=== PATIENT | female | born 1965 | race African-American/Black ===

== ENCOUNTER 2018-08-02 06:50 | Emergency (ER) | payer OTHER ==
[2018-08-02 07:12] VITALS: BMI 25.3
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
[2018-08-02 08:19] LABS: BASO % 0.8 % (0-2.0); EOS % 2.9 % (0-4.5); HEMATOCRIT 37.7 % (32.4-45.2); HEMOGLOBIN 12.1 GM/dL (10.7-15.3); MCH 29.2 pg (25.7-33.7); MCHC 32.1 g/dl (32.0-36.0); MEAN CELL VOLUME 90.9 fl (80-96); MONO % 7.8 % (3.8-10.2); NEUT % 56.5 % (42.8-82.8); PLATELET COUNT 235 K/MM3 (134-434); RBC 4.15 M/mm3 (3.60-5.2); RDW 12.8 % (11.6-15.6); WHITE BLOOD COUNT 6.8 K/mm3 (4.0-10.0)
[2018-08-02 08:25] LABS: ALBUMIN 3.8 g/dl (3.4-5.0); ANION GAP 8 MMOL/L (8-16); BILIRUBIN,TOTAL 0.3 mg/dL (0.2-1); BLOOD UREA NITROGEN 11 mg/dL (7-18); CHLORIDE 104 mmol/L (98-107); CO2 29 mmol/L (21-32); CREATININE 0.9 mg/dL (0.55-1.3); GLUCOSE,RANDOM 96 mg/dL (74-106); LIPASE 78 U/L (73-393); POTASSIUM 5.4 mmol/L (3.5-5.1); SGOT/AST 19 U/L (15-37); SGPT/ALT 22 U/L (13-61); SODIUM 141 mmol/L (136-145); TOT PROT 8.1 g/dl (6.4-8.2)
[2018-08-02 08:28] LABS: ALK PHOS 72 U/L (45-117)
--- NOTE | 2018-08-02 09:06 | PDOC ---
Attending Attestation - Resident Resident Name: Al Ybarra - ED Attending Attestation I have performed the following: I have examined & evaluated the patient, The case was reviewed & discussed with the resident, I agree w/resident's findings & plan - HPI HPI: 08/02/18 13:59 The patient is a 52-year-old female, with a past medical history of asthma and hypothyroidism, who presents to the ED for 3 weeks of left breast pain. She describes the pain as intermittent, sharp in sensation, radiating to the back, exacerbated with deep inspiration and movement. Patient reports taking Aleve with no relief of her symptoms. Patient is also complaining of left-sided numbness that has been ongoing for several weeks and subjective fevers, cough, and congestion that began 1 week ago. The patient denies any recent trauma to the area. She denies any shortness of breath or palpitations. She denies any nausea, vomiting, diarrhea, or abdominal. She denies any urinary symptoms. Allergies: Penicillins Surgical History: None reported. Social History: None reported. PCP: Dr. Beth King - Physicial Exam PE: 08/02/18 13:59 NAD, well appearing, MMM, nl conjunctiva, anicteric; neck supple. lungs clear, no respiratory distress., +left lateral chest wall TTP, under the breast. RRR, abdomen soft nontender. DORAN x4, no focal neuro deficits. No peripheral edema. no calf tenderness or swelling. normal color for ethnicity, [facility]. 08/02/18 14:00 - Medical Decision Making 08/02/18 11:52 Hooper 52 YOF h/o asthma, hypothyroidism presenting with left breast pain x 3 weeks, radiating to back. Worse with deep breathing and movement. Sharp, otc meds w/o relief. Left body numbness x several weeks, subjective fevers. +cough and congestion x 1 week Vitals wnl, normal sats, no respiratory distress. Cannot PERC out. D dimer to r/o PE, which is negative, so doubt Dissection or PE. Trop neg. Low suspicion for ACS angina or myocarditis. CXR clear, no infection or effusion EKG normal sinus rhythm, no interval abnormalities, narrow QRS, ST and T wave segments and morphology normal. Nonspecific T wave abnormalities in III, no ischemic findings. Most likely URI, pleurisy for viral etiology. Also no breast pain/tenderness, also possible costochondritis, so treat supportively. PRN tyl/motrin, flexeril for msk pain, fluids and hydration. Work note, rest and phys activity as tolerated. Dispo: Pt to be discharged in stable condition. Patient and family made aware of impression and plan, return precautions discussed (including but not limited to worsening pain or symptoms), fevers, or signs of infection, chest pain, respiratory distress, inability to tolerate oral intake, dehydration, syncope, or neurologic changes). Follow up with PMD as recommended, follow up information provided, take medications as instructed for duration of time. continue with supportive care, avoid triggers and precipitants. All questions answered to patient's satisfaction and expressed understanding and comfort with this. 08/02/18 11:53
--- NOTE | 2018-08-02 09:57 | EKG ---
Test Reason : Blood Pressure : / mmHG Vent. Rate : 066 BPM Atrial Rate : 066 BPM P-R Int : 128 ms QRS Dur : 080 ms QT Int : 418 ms P-R-T Axes : 050 049 035 degrees QTc Int : 438 ms NORMAL SINUS RHYTHM NORMAL ECG NO PREVIOUS ECGS AVAILABLE Confirmed by MILAD MORALES MD ([id number]) on 08/02/2018 9:57:30 AM Referred By: Confirmed By:MILAD MORALES MD
[2018-08-02 10:43] VITALS: BP 109/31; PULSE 53; TEMP 97.7
== END 2018-08-02 12:00 | disposition home or self-care (01) ==
LOC: JER 06:50
DX: M54.9 Dorsalgia, unspecified (principal); R07.89 Other chest pain; R09.1 Pleurisy; N64.4 Mastodynia; J06.9 Acute upper respiratory infection, unspecified; J45.909 Unspecified asthma, uncomplicated; E07.9 Disorder of thyroid, unspecified; R01.1 Cardiac murmur, unspecified
CPT/HCPCS: 36415; 71046-TC-FY; 80053; 83690; 84484; 85025; 85379; 93005; 93010; 99284-25

== ENCOUNTER 2021-08-03 04:34 | Day surgery (SDC) | payer OTHER ==
[2021-08-02 12:04] VITALS: BMI 27.2
[2021-08-03] MEDS ORDERED: BUPIVACAINE HCL/PF 0.5% (5MG/ML) 10 ML VIAL ONE (07:16)
[2021-08-03] MEDS ORDERED: LIDOCAINE HCL/PF 1% SDV 5ML VIAL ONE (07:16)
[2021-08-03] MEDS ORDERED: TRIAMCINOLONE ACET 40MG/1ML VIAL ONE (07:16)
[2021-08-03] MEDS ORDERED: BUPIVACAINE HCL/PF 0.25% (2.5MG/ML) 10 ML VIAL ONE (07:16)
[2021-08-03] MEDS ORDERED: SODIUM CHLORIDE 0.9% P/F 10 ML VIAL IJ ONE (07:18)
[2021-08-03] MEDS ORDERED: LIDOCAINE HCL/PF 2% SDV 5ML VIAL ONE (07:19)
[2021-08-03] MEDS ORDERED: LIDOCAINE HCL 1% PRESERVATIVE FREE - 30ML VIAL NR ONE (11:04)
[2021-08-03 13:43] VITALS: BP 119/56; PULSE 60; TEMP 97
== END 2021-08-03 12:40 | disposition home or self-care (01) ==
LOC: JASU-SURG 04:34
PROVIDERS: ATTEND Pain Medicine Pain Medicine
PROC: 01HY3MZ Insertion of Neurostimulator Lead into Peripheral Nerve, Percutaneous Approach (ICD-10-PCS; principal; 2021-08-03 09:15)
DX: G89.4 Chronic pain syndrome (principal)
CPT/HCPCS: 64555; C1778

== ENCOUNTER 2022-05-20 06:22 | Emergency (ER) | payer OTHER ==
[2022-05-20 06:51] VITALS: BP 102/68; PULSE 79; TEMP 98.5; BMI 19.3
== END 2022-05-20 08:47 | disposition home or self-care (01) ==
LOC: JERFT 06:22 → JER 06:22 → JERFT 08:47
DX: B34.9 Viral infection, unspecified (principal); J06.9 Acute upper respiratory infection, unspecified
CPT/HCPCS: 99283-25; C9803-CS; U0003; U0005

== ENCOUNTER 2023-06-16 18:21 | Emergency (ER) | payer OTHER ==
[2023-06-16 18:30] VITALS: BP 96/60; PULSE 80; RESP 20; TEMP 98.5; BMI 20.2
[2023-06-16] MEDS ORDERED: DIPHTH,PERTUSS(ACELL),TET 0.5 ML DISP.SYRIN IM ONE ×2 (19:13→19:16)
== END 2023-06-16 19:46 | disposition home or self-care (01) ==
LOC: JERFT 18:21
PROC: 3E0234Z Introduction of Serum, Toxoid and Vaccine into Muscle, Percutaneous Approach (ICD-10-PCS; principal; 2023-06-16)
DX: S61.041A Puncture wound with foreign body of right thumb without damage to nail, initial encounter (principal); W45.8XXA Other foreign body or object entering through skin, initial encounter
CPT/HCPCS: 90715; 99283-25

== ENCOUNTER 2023-08-17 20:58 | Observation (INO) | payer OTHER ==
[2023-08-17 21:16] VITALS: BMI 19.9
[2023-08-17] MEDS ORDERED: METOCLOPRAMIDE HCL INJECTION 10 MG/2 ML VIAL IVPB ONE (21:22)
[2023-08-17] MEDS ORDERED: SODIUM CHLORIDE 0.9% 500 ML INFUS.BAG IV ONE (21:22)
[2023-08-17 21:38] LABS: BASO % 0.9 % (0-2.0); EOS % 2.4 % (0-4.5); HEMATOCRIT 40.6 % (32.4-45.2); LYMPH % 27.3 % (8-40); MCH 28.8 pg (25.7-33.7); MEAN CELL VOLUME 89.9 fl (80-96); MEAN PLT VOLUME 10.2 fl (7.5-11.1); MONO % 13.2 % (3.8-10.2); NEUT % 56.2 % (42.8-82.8); PLATELET COUNT 206 10^3/uL (134-434); RBC 4.51 M/mm3 (3.60-5.2); RDW 13.4 % (11.6-15.6); WHITE BLOOD COUNT 9.1 K/mm3 (4.0-10.0)
[2023-08-17 21:46] LABS: INR 1.17 (0.83-1.09); PROTHROMBIN TIME (PATIENT) 13.6 SEC (9.7-13.0)
[2023-08-17] MEDS ORDERED: METOCLOPRAMIDE HCL INJECTION 10 MG/2 ML VIAL ONE (21:48)
[2023-08-17 21:49] LABS: ACTIVATED PTT 27.7 SECONDS (25.2-36.5)
[2023-08-17 22:02] LABS: CHLORIDE 101 mmol/L (98-107); POTASSIUM 3.6 mmol/L (3.5-5.1); SODIUM 136 mmol/L (136-145)
[2023-08-17 22:04] LABS: CALCIUM 9.2 mg/dL (8.5-10.1)
[2023-08-17 22:05] LABS: ANION GAP 7 MMOL/L (8-16); CO2 29 mmol/L (21-32)
[2023-08-17 22:06] LABS: BLOOD UREA NITROGEN 11.1 mg/dL (7-18); GLUCOSE,RANDOM 140 mg/dL (74-106)
[2023-08-17 22:08] LABS: CREATININE 1.2 mg/dL (0.55-1.3); SGOT/AST 51 U/L (15-37); SGPT/ALT 44 U/L (13-61)
[2023-08-17 22:10] LABS: CHOLESTEROL 207 mg/dL (50-200); TOT PROT 8.2 g/dl (6.4-8.2)
[2023-08-17 22:11] LABS: BILIRUBIN,TOTAL 0.4 mg/dL (0.2-1); LDL CHOLESTEROL (ONLY SJRH) 109 mg/dL (5-100)
[2023-08-17 22:12] LABS: ALK PHOS 90 U/L (45-117); HDL CHOLESTEROL 92 mg/dL (40-60)
[2023-08-18] MEDS ORDERED: DOCUSATE SODIUM 100 MG CAPSULE (FP) PO PRN (00:14)
[2023-08-18] MEDS ORDERED: ACETAMINOPHEN 325 MG TABLET (FP) PO PRN (00:14)
[2023-08-18] MEDS ORDERED: ACETAMINOPHEN 1000 MG/100 ML BAG IVPB PRN (00:23)
[2023-08-18 01:30] LABS: PHOSPHOROUS 4.4 mg/dL (2.5-4.9)
[2023-08-18] MEDS ORDERED: BENZOCAINE/MENTHOL (CHLORASEPTIC ) LOZENGE MM PRN (06:20)
[2023-08-18] MEDS ORDERED: guaiFENesin/D-METHORPHAN HB 10 ML UNIT-DOSE CUPS PO PRN (06:20)
[2023-08-18] MEDS ORDERED: ALBUTEROL SO4 HFA INHALER IH PRN ×2 (10:44→20:55)
[2023-08-18] MEDS ORDERED: LEVOTHYROXINE NA 50 MCG TABLET (FP) PO SCH (11:00)
[2023-08-18] MEDS: D5-NS + 20 MEQ KCL - 20 MEQ/1,000 ML INFUS.BAG IV SCH ×2 (11:23→18:08)
[2023-08-18 14:13] LABS: PH,URINE 5.5 (5.0-8.0); URINE APPEARANCE Clear; URINE BILIRUBIN Negative (NEGATIVE); URINE COLOR Yellow; URINE GLUCOSE (UA) Negative (NEGATIVE); URINE KETONE 1+ (NEGATIVE); URINE LEUK ESTERASE Negative (NEGATIVE); URINE NITRITE Negative (NEGATIVE); URINE PROTEIN Negative (NEGATIVE); URINE UROBILINOGEN 0.2 mg/dL (0.2-1.0)
[2023-08-19] MEDS ORDERED: ACETAMINOPHEN 325 MG TABLET (FP) PO PRN (00:14)
[2023-08-19] MEDS: D5-NS + 20 MEQ KCL - 20 MEQ/1,000 ML INFUS.BAG IV SCH ×2 (06:33→21:18)
[2023-08-19] MEDS: LEVOTHYROXINE NA 50 MCG TABLET (FP) PO SCH (06:33)
[2023-08-19 08:11] LABS: POTASSIUM 4.7 mmol/L (3.5-5.1)
[2023-08-19 08:12] LABS: BLOOD UREA NITROGEN 17.4 mg/dL (7-18); CALCIUM 8.7 mg/dL (8.5-10.1)
[2023-08-19 08:16] LABS: CREATININE 0.9 mg/dL (0.55-1.3)
[2023-08-19 08:37] LABS: BASO % 0.7 % (0-2.0); EOS % 5.4 % (0-4.5); HEMATOCRIT 37.8 % (32.4-45.2); HEMOGLOBIN 12.4 GM/dL (10.7-15.3); LYMPH % 36.8 % (8-40); MCH 28.9 pg (25.7-33.7); MCHC 32.7 g/dl (32.0-36.0); MEAN CELL VOLUME 88.3 fl (80-96); MEAN PLT VOLUME 10.5 fl (7.5-11.1); MONO % 10.8 % (3.8-10.2); NEUT % 46.3 % (42.8-82.8); PLATELET COUNT 204 10^3/uL (134-434); RBC 4.28 M/mm3 (3.60-5.2); RDW 13.5 % (11.6-15.6); WHITE BLOOD COUNT 6.6 K/mm3 (4.0-10.0)
[2023-08-19] MEDS: LORATADINE 10 MG TABLET PO SCH (09:38)
[2023-08-19] MEDS: PANTOPRAZOLE 40 MG TABLET PO SCH (09:38)
[2023-08-19] MEDS ORDERED: REMDESIVIR 200 MG in SODIUM CHLORIDE 250 ML IVPB ONE (22:00)
[2023-08-20] MEDS: D5-NS + 20 MEQ KCL - 20 MEQ/1,000 ML INFUS.BAG IV SCH (00:45)
[2023-08-20] MEDS: LEVOTHYROXINE NA 50 MCG TABLET (FP) PO SCH (05:59)
[2023-08-20] MEDS: LORATADINE 10 MG TABLET PO SCH (11:10)
[2023-08-20] MEDS: PANTOPRAZOLE 40 MG TABLET PO SCH (11:10)
[2023-08-20] MEDS: REMDESIVIR 100 MG in SODIUM CHLORIDE 250 ML IVPB SCH (20:40)
[2023-08-21] MEDS: D5-NS + 20 MEQ KCL - 20 MEQ/1,000 ML INFUS.BAG IV SCH ×2 (01:00→17:46)
[2023-08-21] MEDS: LEVOTHYROXINE NA 50 MCG TABLET (FP) PO SCH (06:22)
[2023-08-21] MEDS: PANTOPRAZOLE 40 MG TABLET PO SCH (10:00)
[2023-08-21] MEDS: LORATADINE 10 MG TABLET PO SCH (10:00)
[2023-08-21] MEDS: REMDESIVIR 100 MG in SODIUM CHLORIDE 250 ML IVPB SCH (21:37)
[2023-08-22] MEDS: LEVOTHYROXINE NA 50 MCG TABLET (FP) PO SCH (06:01)
[2023-08-22] MEDS: D5-NS + 20 MEQ KCL - 20 MEQ/1,000 ML INFUS.BAG IV SCH ×2 (10:01→23:30)
[2023-08-22] MEDS: PANTOPRAZOLE 40 MG TABLET PO SCH (10:06)
[2023-08-22] MEDS: LORATADINE 10 MG TABLET PO SCH (10:06)
[2023-08-22 18:00] VITALS: RESP 18
[2023-08-22] MEDS: REMDESIVIR 100 MG in SODIUM CHLORIDE 250 ML IVPB SCH (21:53)
[2023-08-23] MEDS: LEVOTHYROXINE NA 50 MCG TABLET (FP) PO SCH (06:56)
[2023-08-23] MEDS: PANTOPRAZOLE 40 MG TABLET PO SCH (10:32)
[2023-08-23] MEDS: LORATADINE 10 MG TABLET PO SCH (10:32)
[2023-08-23 11:37] VITALS: BP 103/56; PULSE 82; TEMP 98.8
== END 2023-08-23 13:19 | disposition home or self-care (01) ==
LOC: JER 20:58 → JERBED 22:33 → J4S 08-18 14:25
PROVIDERS: ADMIT Internal Medicine; ATTEND Family Medicine
PROC: 3E0337Z Introduction of Electrolytic and Water Balance Substance into Peripheral Vein, Percutaneous Approach (ICD-10-PCS; principal; 2023-08-17)
PROC: 3E033GC Introduction of Other Therapeutic Substance into Peripheral Vein, Percutaneous Approach (ICD-10-PCS; 2023-08-17)
DX: U07.1 COVID-19 (principal); E03.9 Hypothyroidism, unspecified; J45.909 Unspecified asthma, uncomplicated; R79.9 Abnormal finding of blood chemistry, unspecified; R55 Syncope and collapse; R11.2 Nausea with vomiting, unspecified; R01.1 Cardiac murmur, unspecified; Z87.42 Personal history of other diseases of the female genital tract; R41.82 Altered mental status, unspecified; Z88.0 Allergy status to penicillin
CPT/HCPCS: 0241U-QW; 36415; 70450-TC; 70496-TC; 70498-TC; 71045-TC-FY; 72125-TC; 80048; 80053; 80061; 81003; 82550; 82553; 83036; 83735; 84100; 84439; 84443; 84484; 85025; 85610; 85730; 86850; 86900; 86901; 87086; 93005; 93010; 96361; 96365; 96366; 96375; 97116-GP; 97161-GP; 99285-25; C9399; G0378

== ENCOUNTER 2023-12-08 09:51 | Emergency (ER) | payer OTHER ==
[2023-12-08 10:03] VITALS: TEMP 98.2; BMI 22.6
[2023-12-08] MEDS ORDERED: LACTATED RINGERS SOLUTION 1000 ML INFUS.BAG IV ONE (10:23)
[2023-12-08] MEDS ORDERED: ACETAMINOPHEN 1000 MG/100 ML BAG IVPB ONE (10:23)
[2023-12-08] MEDS ORDERED: ACETAMINOPHEN INJECTION 100 ML IVPB ONE (10:31)
[2023-12-08 11:03] LABS: BASO % 0.3 % (0-2.0); EOS % 0.1 % (0-4.5); HEMOGLOBIN 12.8 GM/dL (10.7-15.3); LYMPH % 20.7 % (8-40); MCH 28.6 pg (25.7-33.7); MEAN CELL VOLUME 89.5 fl (80-96); MEAN PLT VOLUME 10.6 fl (7.5-11.1); NEUT % 69.9 % (42.8-82.8); PLATELET COUNT 147 10^3/uL (134-434); RBC 4.47 M/mm3 (3.60-5.2); RDW 13.6 % (11.6-15.6); WHITE BLOOD COUNT 8.2 K/mm3 (4.0-10.0)
[2023-12-08 11:05] LABS: VENOUS BASE EXCESS -5.4 mmol/L (-2-2); VENOUS O2 SATURATION 95.3 % (70-80); VENOUS PCO2 33.6 mmHg (38-52); VENOUS PH 7.369 (7.310-7.410)
[2023-12-08 11:10] LABS: INR 1.11 (0.83-1.09); PROTHROMBIN TIME (PATIENT) 12.9 SEC (9.7-13.0)
[2023-12-08 11:12] LABS: ACTIVATED PTT 31.2 SECONDS (25.2-36.5)
[2023-12-08 11:19] LABS: POTASSIUM 3.7 mmol/L (3.5-5.1)
[2023-12-08 11:21] LABS: BLOOD UREA NITROGEN 20.6 mg/dL (7-18); CALCIUM 9.1 mg/dL (8.5-10.1)
[2023-12-08 11:22] LABS: ALBUMIN 3.6 g/dl (3.4-5.0)
[2023-12-08 11:24] LABS: CREATININE 1.2 mg/dL (0.55-1.3)
[2023-12-08 11:26] LABS: BILIRUBIN,TOTAL 0.5 mg/dL (0.2-1)
[2023-12-08 14:40] LABS: URINE APPEARANCE CLEAR; URINE BILIRUBIN NEGATIVE (NEGATIVE); URINE COLOR YELLOW; URINE GLUCOSE (UA) NEGATIVE (NEGATIVE); URINE KETONE NEGATIVE (NEGATIVE); URINE LEUK ESTERASE TRACE (NEGATIVE); URINE NITRITE NEGATIVE (NEGATIVE); URINE PROTEIN NEGATIVE (NEGATIVE); URINE UROBILINOGEN 0.2 mg/dL (0.2-1.0)
[2023-12-08 14:46] LABS: EPI CELLS 19.3 /uL (0-25.1); HYALINE CASTS 0.29 /uL (0-3.1); URINE BACTERIA 195.2 /uL (0-1359); URINE RBC 21.7 /uL (0-23.9); URINE WBC 36.4 /uL (0-25.8)
[2023-12-08] MEDS ORDERED: MECLIZINE HCL 25 MG TABLET (FP) PO ONE (15:01)
[2023-12-08] MEDS ORDERED: MECLIZINE HCL 25 MG TABLET (FP) ONE (15:18)
[2023-12-08] MEDS ORDERED: AZITHROMYCIN IVPB 500 MG in DEXTROSE 5%-WATER - 250 ML IVPB ONE (15:29)
[2023-12-08] MEDS ORDERED: AZITHROMYCIN IVPB 500 MG/250 ML BAG IVPB ONE (15:40)
[2023-12-08 17:14] VITALS: BP 108/68; PULSE 61; RESP 18
== END 2023-12-08 17:48 | disposition home or self-care (01) ==
LOC: JER 09:51
PROC: 3E03329 Introduction of Other Anti-infective into Peripheral Vein, Percutaneous Approach (ICD-10-PCS; principal; 2023-12-08)
PROC: 3E033NZ Introduction of Analgesics, Hypnotics, Sedatives into Peripheral Vein, Percutaneous Approach (ICD-10-PCS; 2023-12-08)
DX: R05.9 Cough, unspecified (principal); R06.02 Shortness of breath; R19.7 Diarrhea, unspecified; M79.10 Myalgia, unspecified site; R53.81 Other malaise; R11.0 Nausea; R10.84 Generalized abdominal pain; J10.1 Influenza due to other identified influenza virus with other respiratory manifestations; J18.9 Pneumonia, unspecified organism; Z20.822 Contact with and (suspected) exposure to COVID-19
CPT/HCPCS: 0241U-QW; 36415; 71045-TC-FY; 71275-TC; 74177-TC; 80053; 81003; 82803; 82962; 83690; 83735; 84484; 85025; 85610; 85730; 86850; 86900; 86901; 87086; 87635; 93005; 93010; 96365; 96375; 99285-25; Q9967